=== PATIENT | female | born 1990 | race Caucasian/White ===

== ENCOUNTER → 2017-11-03 | Outpatient (CLI) | payer MEDICARE, MEDICAID ==
[~2017-11-03] MED LIST: DIAZ2TAB PO; DIAZ5TAB4 PO; HYDR-3240 PO; HYDR-3307 PO
== END ==
LOC: STAR 09:30
PROVIDERS: ATTEND Otolaryngology
DX: Z02.9 Encounter for administrative examinations, unspecified (principal)

== ENCOUNTER 2017-11-16 05:51 | Day surgery (SDC) | payer MEDICARE, MEDICAID ==
[~2017-11-16] VITALS: Ht 165.1 cm; Wt 99.3 kg
[2017-11-16] MEDS ORDERED: LACTATED RINGERS 1,000 ML IV SCH (06:34)
[2017-11-16 06:35] VITALS: BP 122/86
[2017-11-16] MEDS ORDERED: OXYMETAZOLINE NASAL SPRAY 0.05%, 15ML ONE (06:52)
[2017-11-16 06:55] LABS: HCG UR SG 1.015 (1.003-1.030)
[2017-11-16] MEDS ORDERED: MIDAZOLAM 1 MG/ML, 2ML ONE (07:09)
[2017-11-16] MEDS ORDERED: FENTANYL PF 250 MCG/5ML ONE (07:09)
[2017-11-16] MEDS ORDERED: KETAMINE 10 MG/ML, 20ML ONE (07:09)
[2017-11-16] MEDS ORDERED: DEXAMETHASONE 4 MG/ML, 1ML ONE (07:10)
[2017-11-16] MEDS ORDERED: SUCCINYLCHOLINE 20 MG/ML, 10ML ONE (07:10)
[2017-11-16] MEDS ORDERED: ONDANSETRON 2MG/ML, 2ML ONE (07:10)
[2017-11-16] MEDS ORDERED: GLYCOPYRROLATE 0.2MG/1ML, 5ML ONE (07:10)
[2017-11-16] MEDS ORDERED: CEFAZOLIN 1,000 MG ONE (07:10)
[2017-11-16] MEDS ORDERED: NEOSTIGMINE 1 MG/ML, 10ML ONE (07:10)
[2017-11-16] MEDS ORDERED: PROPOFOL 10 MG/ML, 20ML ONE (07:10)
[2017-11-16] MEDS ORDERED: ROCURONIUM 10 MG/ML,10ML ONE (07:10)
[2017-11-16] MEDS ORDERED: ONDANSETRON 2MG/ML, 2ML IVPush PRN (07:30)
[2017-11-16] MEDS ORDERED: DIAZEPAM 5 MG/ML, 2ML IVPush PRN (07:30)
[2017-11-16] MEDS ORDERED: OXYcodone 5 MG/5 ML ORAL.SOL UDC PO PRN (07:30)
[2017-11-16] MEDS ORDERED: HYDROcodone/APAP 7.5-325MG/15ML UDC PO PRN (07:30)
[2017-11-16] MEDS ORDERED: PROMETHAZINE 25 MG/ML, 1ML IV PRN (07:30)
[2017-11-16] MEDS ORDERED: ACETAMINOPHEN 325 MG TABLET PO PRN (07:30)
[2017-11-16] MEDS ORDERED: HYDROmorphone 1 MG/ML, 1ML IV PRN (07:30)
[2017-11-16] MEDS ORDERED: FENTANYL PF 100 MCG/2ML ONE (08:32)
[2017-11-16] MEDS ORDERED: ACETAMINOPHEN 650 MG/20.3 ML UDC ONE (08:32)
[2017-11-16] MEDS ORDERED: OXYcodone 5 MG/5 ML ORAL.SOL UDC ONE (08:33)
[2017-11-16] MEDS: FENTANYL PF 100 MCG/2ML IV PRN ×2 (08:34→08:42)
[2017-11-16] MEDS ORDERED: IBUPROFEN 100 MG/5 ML UDC PO PRN (11:00)
== END 2017-11-16 11:20 ==
LOC: OUT 05:51
PROVIDERS: ATTEND Otolaryngology
DX: J35.1 Hypertrophy of tonsils (principal); Z88.6 Allergy status to analgesic agent; G89.29 Other chronic pain
CPT/HCPCS: 42826; 81025; 88304; J0330; J0690; J1100; J2250; J2405; J2704; J2710; J3010; J7120; J3490

== ENCOUNTER 2019-11-17 12:32 | Inpatient (IN) | payer MEDICAID, MEDICARE ==
[~2019-11-17] VITALS: Ht 165.1 cm; Wt 109.3 kg
[~2019-11-17 12:32] MED LIST changes: -HYDR-3307 PO; +HYDR-36 PO
[2019-11-17 13:16] LABS: MEAN CORPUSCULAR HEMOGLOBIN 30.7 pg (27.0-34.8); MEAN CORPUSCULAR HGB CONC 34.4 g/dL (32.4-35.8); MEAN CORPUSCULAR VOLUME 89.3 fL (80-100); MEAN PLATELET VOLUME 8.2 fL (7.4-10.4); PLATELET COUNT 358 x10^3/uL (130-400); RED BLOOD COUNT 4.54 x10^6/uL (3.82-5.3); RED CELL DISTRIBUTION WIDTH 12.7 % (9.6-15.2)
[2019-11-17 13:26] LABS: ALBUMIN 3.4 g/dL (3.4-5.0); ANION GAP 8 mmol/L (5-15); CALCIUM 9.2 mg/dL (8.5-10.1); CHLORIDE 106 mmol/L (98-107); CREATININE 0.63 mg/dL (0.55-1.02)
--- NOTE | 2019-11-17 13:31 | NUR ---
TALENT COORDINATOR: PT TO ROOM FROM LOBBY, AMBULATORY
--- NOTE | 2019-11-17 13:50 | NUR ---
Dr. Fernandez at bedside to evaluate pt. Pt c/o L flank pain, body aches, pain with urination, chills x4 days. Pt states hx freq UTIs states sx similar. Pt positioned for comfort in bed, continuous heart, oxygen and BP monitors applied, all safety measures observed.
[2019-11-17] MEDS ORDERED: MORPHINE SULFATE 4 MG/ML, 1ML ONE (13:58)
[2019-11-17] MEDS ORDERED: METOCLOPRAMIDE 5 MG/ML, 2ML ONE (13:58)
[2019-11-17] MEDS ORDERED: CEFTRIAXONE PMX 1GM/50ML 50 ML ONE (13:58)
[2019-11-17] MEDS ORDERED: MORPHINE SULFATE 4 MG/ML, 1ML IVPush PRN (14:00)
[2019-11-17] MEDS ORDERED: METOCLOPRAMIDE 5 MG/ML, 2ML IVPush ONE (14:00)
[2019-11-17] MEDS ORDERED: CEFTRIAXONE PMX 1GM/50ML 50 ML IVPB ONE (14:00)
[2019-11-17] MEDS ORDERED: DIPHENHYDRAMINE 50 MG/ML, 1ML IVPush ONE (14:00)
[2019-11-17] MEDS ORDERED: SODIUM CHLORIDE FLUSH 10ML SYR IVF ONE (14:00)
[2019-11-17] MEDS ORDERED: SODIUM CHLORIDE 0.9% 1,000ML IVBOLUS ONE (14:00)
[2019-11-17 14:12] LABS: MICROSCOPIC INDICATED
[2019-11-17 14:13] LABS: CULTURE INDICATED? YES
[2019-11-17] MEDS ORDERED: DIPHENHYDRAMINE 50 MG/ML, 1ML ONE (14:19)
[2019-11-17 14:27] LABS: MD SCAN
[2019-11-17 14:30] LABS: BASOPHILS % (AUTO) 1 % (0-1); EOSINOPHILS % (AUTO) 1 % (1-7); LYMPHOCYTES # (AUTO) 2.03 x10^3/uL (1-3.4); LYMPHOCYTES % (AUTO) 10 % (22-44); MONOCYTES # (AUTO) 0.78 x10^3/uL (0.2-0.8); MONOCYTES % (AUTO) 4 % (2-9); NEUTROPHILS # (AUTO) 17.43 x10^3/uL (1.8-6.8); NEUTROPHILS % (AUTO) 85 % (42-75)
[2019-11-17] MEDS ORDERED: METH750T87 PO (15:05)
--- NOTE | 2019-11-17 15:05 | NUR ---
Pt medicated per MAR, denies other needs.
[2019-11-17] MEDS ORDERED: LABETALOL 5MG/ML, 20ML IVPush PRN (15:30)
[2019-11-17] MEDS ORDERED: ONDANSETRON ODT 4 MG PO PRN (15:30)
[2019-11-17] MEDS ORDERED: CEFTRIAXONE PMX 1GM/50ML 50 ML IV ONE (15:30)
[2019-11-17 15:49] LABS: FREE T4 (FREE THYROXINE) 1.2 ng/dL (0.76-1.46)
--- NOTE | 2019-11-17 16:06 | NUR ---
Report called to [facility] on medical. Floor ready for pt transport.
--- NOTE | 2019-11-17 16:25 | NUR ---
Pt's level of care changed to med tele.
--- NOTE | 2019-11-17 16:33 | NUR ---
Called Dr. Danielson regarding pt's VS including fever and tachycardia. Dr. Danielson states that she will enter orders for Tylenol. Pt given water per request.
--- NOTE | 2019-11-17 16:45 | NUR ---
Pt resting in bed with her eyes closed, resp even and unlabored, VAZQUEZ.
[2019-11-17] MEDS ORDERED: ACETAMINOPHEN 650 MG SUPP PR PRN (17:00)
[2019-11-17] MEDS ORDERED: ACETAMINOPHEN 650 MG SUPP ONE (17:35)
--- NOTE | 2019-11-17 17:55 | NUR ---
Pt ambulatory to bathroom and back to bed with steady gait. Pt placed on hospital bed for comfort. Pt provided ice per request, denies other needs.
[2019-11-17 18:20] LABS: AMPHETAMINE SCREEN, URINE Negative (Negative); BARBITURATE SCREEN, URINE Negative (Negative); BENZODIAZEPINE SCREEN, URINE Negative (Negative); CANNABINOID SCREEN, URINE Negative (Negative); COCAINE SCREEN, URINE Negative (Negative); METHADONE SCREEN, URINE Negative (Negative); OPIATE SCREEN, URINE Positive (Negative)
--- NOTE | 2019-11-17 18:35 | NUR ---
Meal tray ordered for pt.
--- NOTE | 2019-11-17 18:54 | NUR ---
Report to Tori [facility]. Pt resting in bed with eyes closed, resp even and unlabored, MERAN.
[2019-11-17] MEDS: SODIUM CHLORIDE 0.9% 1,000 ML IV SCH ×2 (19:37→21:16)
--- NOTE | 2019-11-17 20:05 | NUR ---
PT AMB TO RESTROOM WITH STEADY GAIT. PT PROVIDED SANDWICH NO FURTHER NEEDS AT THIS TIME
[2019-11-17] MEDS ORDERED: FAMOTIDINE 20 MG/2 ML IVPush SCH (21:00)
[2019-11-17] MEDS ORDERED: FAMOTIDINE 40 MG TABLET ONE (21:02)
[2019-11-17] MEDS: METHOCARBAMOL 750 MG TABLET PO SCH (21:07)
[2019-11-17] MEDS: HYDROcodone/APAP 10/325 MG TABLET PO PRN (21:07)
[2019-11-17] MEDS: FAMOTIDINE 20 MG TABLET PO SCH (21:08)
[2019-11-18 01:12] VITALS: BP 111/58
[2019-11-18] MEDS: CEFTRIAXONE PMX 2GM/50ML 50 ML IV SCH (02:27)
[2019-11-18] MEDS ORDERED: ACETAMINOPHEN 325 MG TABLET PO PRN (03:30)
[2019-11-18] MEDS: SODIUM CHLORIDE 0.9% 1,000 ML IV SCH ×2 (04:54→14:28)
[2019-11-18] MEDS: HYDROcodone/APAP 10/325 MG TABLET PO PRN ×2 (04:57→11:25)
[2019-11-18 05:02] LABS: ALANINE AMINOTRANSFERASE 9 U/L (12-78); ALBUMIN 2.7 g/dL (3.4-5.0); ANION GAP 8 mmol/L (5-15); CALCIUM 8.1 mg/dL (8.5-10.1); CHLORIDE 112 mmol/L (98-107); CREATININE 0.65 mg/dL (0.55-1.02)
[2019-11-18 05:13] LABS: ALKALINE PHOSPHATASE 60 U/L (45-117); BILIRUBIN,TOTAL 0.6 mg/dL (0.2-1.0); TOTAL PROTEIN 6.5 g/dL (6.4-8.2)
[2019-11-18 06:08] LABS: MD YES
[2019-11-18 06:42] LABS: MEAN CORPUSCULAR HEMOGLOBIN 30.1 pg (27.0-34.8); MEAN CORPUSCULAR HGB CONC 33.4 g/dL (32.4-35.8); MEAN CORPUSCULAR VOLUME 90.3 fL (80-100); PLATELET COUNT 292 x10^3/uL (130-400); RED CELL DISTRIBUTION WIDTH 12.9 % (9.6-15.2)
[2019-11-18 07:00] VITALS: BP 113/69
[2019-11-18 07:29] LABS: BASOPHILS # (AUTO) 0.09 x10^3/uL (0-0.1); BASOPHILS % (AUTO) 0 % (0-1); EOSINOPHILS # (AUTO) 0.01 x10^3/uL (0-0.4); EOSINOPHILS % (AUTO) 0 % (1-7); LYMPHOCYTES # (AUTO) 2.59 x10^3/uL (1-3.4); LYMPHOCYTES % (AUTO) 12 % (22-44); MD SCAN; MONOCYTES # (AUTO) 1.43 x10^3/uL (0.2-0.8); MONOCYTES % (AUTO) 7 % (2-9); NEUTROPHILS # (AUTO) 17.14 x10^3/uL (1.8-6.8); NEUTROPHILS % (AUTO) 81 % (42-75)
[2019-11-18] MEDS ORDERED: FAMOTIDINE 40 MG TABLET ONE (08:30)
[2019-11-18] MEDS: FAMOTIDINE 20 MG TABLET PO SCH ×2 (08:39→21:12)
[2019-11-18] MEDS: METHOCARBAMOL 750 MG TABLET PO SCH ×2 (08:40→21:12)
[2019-11-18] MEDS ORDERED: POTASSIUM CHLORIDE 20 MEQ TAB.ER.PRT PO ONE ×2 (09:00→12:00)
[2019-11-18] MEDS ORDERED: POTASSIUM PHOSPHATE 44 MEQ in SODIUM CHLORIDE 0.9% 500 ML IV ONE (09:00)
[2019-11-18 14:10] VITALS: BP 104/70
[2019-11-18] MEDS: KETOROLAC 30 MG/1 ML IVPush SCH ×2 (14:28→21:12)
[2019-11-18] MEDS ORDERED: CEFTRIAXONE PMX 2GM/50ML 50 ML IV SCH (15:30)
[2019-11-18 19:34] VITALS: BP 110/76
[2019-11-18] MEDS ORDERED: OMNIPAQUE 350 MG/ML, 100ML BOTTLE ONE (23:41)
[2019-11-19 01:28] VITALS: BP 106/68
[2019-11-19] MEDS: SODIUM CHLORIDE 0.9% 1,000 ML IV SCH ×3 (01:45→17:16)
[2019-11-19] MEDS: CEFTRIAXONE PMX 2GM/50ML 50 ML IV SCH (01:45)
[2019-11-19 05:51] LABS: ALANINE AMINOTRANSFERASE 18 U/L (12-78); ALBUMIN 2.5 g/dL (3.4-5.0); ANION GAP 7 mmol/L (5-15); CALCIUM 8.2 mg/dL (8.5-10.1); CHLORIDE 113 mmol/L (98-107); CREATININE 0.59 mg/dL (0.55-1.02)
[2019-11-19 05:52] LABS: BASOPHILS # (AUTO) 0.11 x10^3/uL (0-0.1); BASOPHILS % (AUTO) 1 % (0-1); EOSINOPHILS # (AUTO) 0.14 x10^3/uL (0-0.4); EOSINOPHILS % (AUTO) 1 % (1-7); LYMPHOCYTES # (AUTO) 1.82 x10^3/uL (1-3.4); LYMPHOCYTES % (AUTO) 13 % (22-44); MD NO; MEAN CORPUSCULAR HEMOGLOBIN 30.1 pg (27.0-34.8); MEAN CORPUSCULAR HGB CONC 33.3 g/dL (32.4-35.8); MEAN CORPUSCULAR VOLUME 90.3 fL (80-100); MEAN PLATELET VOLUME 9.1 fL (7.4-10.4); MONOCYTES # (AUTO) 1.04 x10^3/uL (0.2-0.8); MONOCYTES % (AUTO) 7 % (2-9); NEUTROPHILS # (AUTO) 11.02 x10^3/uL (1.8-6.8); NEUTROPHILS % (AUTO) 78 % (42-75); PLATELET COUNT 274 x10^3/uL (130-400); RED BLOOD COUNT 3.99 x10^6/uL (3.82-5.3); RED CELL DISTRIBUTION WIDTH 12.7 % (9.6-15.2)
[2019-11-19 05:53] LABS: ALKALINE PHOSPHATASE 67 U/L (45-117); BILIRUBIN,TOTAL 0.3 mg/dL (0.2-1.0); TOTAL PROTEIN 6.4 g/dL (6.4-8.2)
[2019-11-19 07:05] VITALS: BP 130/86
[2019-11-19] MEDS: FAMOTIDINE 20 MG TABLET PO SCH ×2 (09:00→20:47)
[2019-11-19] MEDS ORDERED: FAMOTIDINE 40 MG TABLET ONE ×2 (09:36→20:24)
[2019-11-19] MEDS: METHOCARBAMOL 750 MG TABLET PO SCH ×2 (09:49→20:47)
[2019-11-19] MEDS: KETOROLAC 30 MG/1 ML IVPush SCH ×2 (09:50→20:47)
[2019-11-19 13:20] VITALS: BP 112/71
[2019-11-19] MEDS: HYDROcodone/APAP 10/325 MG TABLET PO PRN (17:17)
[2019-11-19 20:49] VITALS: BP 114/78
[2019-11-20] MEDS: CEFTRIAXONE PMX 2GM/50ML 50 ML IV SCH (01:34)
[2019-11-20] MEDS: SODIUM CHLORIDE 0.9% 1,000 ML IV SCH ×3 (01:41→21:16)
[2019-11-20 02:46] VITALS: BP 114/75
[2019-11-20 05:38] LABS: BASOPHILS # (AUTO) 0.05 x10^3/uL (0-0.1); BASOPHILS % (AUTO) 1 % (0-1); EOSINOPHILS # (AUTO) 0.17 x10^3/uL (0-0.4); EOSINOPHILS % (AUTO) 2 % (1-7); LYMPHOCYTES # (AUTO) 1.62 x10^3/uL (1-3.4); LYMPHOCYTES % (AUTO) 18 % (22-44); MD NO; MEAN CORPUSCULAR HEMOGLOBIN 30.2 pg (27.0-34.8); MEAN CORPUSCULAR HGB CONC 33.5 g/dL (32.4-35.8); MEAN CORPUSCULAR VOLUME 90.1 fL (80-100); MEAN PLATELET VOLUME 9.3 fL (7.4-10.4); MONOCYTES # (AUTO) 0.73 x10^3/uL (0.2-0.8); MONOCYTES % (AUTO) 8 % (2-9); NEUTROPHILS # (AUTO) 6.67 x10^3/uL (1.8-6.8); NEUTROPHILS % (AUTO) 72 % (42-75); PLATELET COUNT 279 x10^3/uL (130-400); RED BLOOD COUNT 3.92 x10^6/uL (3.82-5.3); RED CELL DISTRIBUTION WIDTH 12.6 % (9.6-15.2)
[2019-11-20 05:42] LABS: ANION GAP 7 mmol/L (5-15); CALCIUM 7.9 mg/dL (8.5-10.1); CHLORIDE 115 mmol/L (98-107); CREATININE 0.66 mg/dL (0.55-1.02)
[2019-11-20 07:52] VITALS: BP 130/90
[2019-11-20] MEDS ORDERED: FAMOTIDINE 40 MG TABLET ONE ×2 (08:49→20:31)
[2019-11-20] MEDS: METHOCARBAMOL 750 MG TABLET PO SCH ×2 (08:59→20:59)
[2019-11-20] MEDS: FAMOTIDINE 20 MG TABLET PO SCH ×2 (08:59→20:59)
[2019-11-20] MEDS: KETOROLAC 30 MG/1 ML IVPush SCH ×2 (08:59→20:59)
[2019-11-20 14:25] VITALS: BP 121/79
[2019-11-20] MEDS: HYDROcodone/APAP 10/325 MG TABLET PO PRN (16:25)
[2019-11-20 18:40] VITALS: BP 143/80
[2019-11-21 01:05] VITALS: BP 115/75
[2019-11-21] MEDS: CEFTRIAXONE PMX 2GM/50ML 50 ML IV SCH (01:24)
[2019-11-21 05:00] LABS: BASOPHILS # (AUTO) 0.06 x10^3/uL (0-0.1); BASOPHILS % (AUTO) 1 % (0-1); EOSINOPHILS # (AUTO) 0.27 x10^3/uL (0-0.4); EOSINOPHILS % (AUTO) 3 % (1-7); LYMPHOCYTES # (AUTO) 2.19 x10^3/uL (1-3.4); LYMPHOCYTES % (AUTO) 22 % (22-44); MD NO; MEAN CORPUSCULAR HEMOGLOBIN 30.2 pg (27.0-34.8); MEAN CORPUSCULAR HGB CONC 33.7 g/dL (32.4-35.8); MEAN CORPUSCULAR VOLUME 89.7 fL (80-100); MEAN PLATELET VOLUME 8.9 fL (7.4-10.4); MONOCYTES % (AUTO) 9 % (2-9); NEUTROPHILS % (AUTO) 66 % (42-75); PLATELET COUNT 305 x10^3/uL (130-400); RED BLOOD COUNT 4.13 x10^6/uL (3.82-5.3)
[2019-11-21] MEDS: SODIUM CHLORIDE 0.9% 1,000 ML IV SCH (05:03)
[2019-11-21 05:17] LABS: ANION GAP 9 mmol/L (5-15); CALCIUM 8.1 mg/dL (8.5-10.1); CHLORIDE 114 mmol/L (98-107); CREATININE 0.64 mg/dL (0.55-1.02)
[2019-11-21 06:33] VITALS: BP 135/83
[2019-11-21] MEDS ORDERED: FAMOTIDINE 40 MG TABLET ONE (07:33)
[2019-11-21] MEDS: METHOCARBAMOL 750 MG TABLET PO SCH (07:39)
[2019-11-21] MEDS: KETOROLAC 30 MG/1 ML IVPush SCH (07:39)
[2019-11-21] MEDS: FAMOTIDINE 20 MG TABLET PO SCH (07:39)
[2019-11-21] MEDS ORDERED: MAGNESIUM SULFATE PMX 2GM/50ML 50 ML IV ONE (08:00)
[2019-11-21 12:46] VITALS: BP 134/88
[2019-11-21] MEDS ORDERED: CEFD300C37 PO (13:33)
[2019-11-21] MEDS ORDERED: CEFTRIAXONE PMX 2GM/50ML 50 ML IV SCH (14:00)
== END 2019-11-21 16:20 | disposition home or self-care (01) | DRG 872 ==
LOC: ED 13:56 → EDIP 15:07 → 4WST 20:48 → DCLOUNGE 11-21 16:15
PROVIDERS: ADMIT Internal Medicine; ATTEND Hospitalist
DX: A41.51 Sepsis due to Escherichia coli [E. coli] (principal); E87.1 Hypo-osmolality and hyponatremia; N10 Acute pyelonephritis; E86.1 Hypovolemia; E83.39 Other disorders of phosphorus metabolism; B96.89 Other specified bacterial agents as the cause of diseases classified elsewhere; E02 Subclinical iodine-deficiency hypothyroidism; E11.9 Type 2 diabetes mellitus without complications; F17.210 Nicotine dependence, cigarettes, uncomplicated; G89.29 Other chronic pain; K75.81 Nonalcoholic steatohepatitis (NASH); M54.2 Cervicalgia; M54.9 Dorsalgia, unspecified; Z87.440 Personal history of urinary (tract) infections
CPT/HCPCS: 36415; 74177; 80048; 80053; 80307; 81001; 82040; 83605; 83735; 84100; 84145; 84439; 84443; 84703; 85025; 87040; 87077; 87086; 87186; 93005; 96365; 96375; G0378; J0696; J1885; Q9967; J1200; J2270; J2765; J3475; J7030; J7040

== ENCOUNTER → 2020-03-13 | Outpatient (CLI) | payer MEDICARE, MEDICAID ==
[~2020-03-13] MED LIST changes: +CEFD300C37 PO; +METH750T87 PO
== END | disposition home or self-care (01) ==
LOC: RAD 08:40
PROVIDERS: ATTEND Surgery
DX: Z01.818 Encounter for other preprocedural examination (principal); K76.0 Fatty (change of) liver, not elsewhere classified; G47.8 Other sleep disorders; E78.00 Pure hypercholesterolemia, unspecified; R32 Unspecified urinary incontinence; E66.01 Morbid (severe) obesity due to excess calories
CPT/HCPCS: 71046; 74246; 93005